=== PATIENT | female | born 1965 | race Caucasian/White ===

== ENCOUNTER 2021-11-29 08:35 | Emergency (ER) | payer SELFPAY ==
--- NOTE | ~2021-11-29 | XR_ITS ---
EXAMINATION: [id number] DATE: 11/29/2021 09:11 INDICATION: Posterior right rib pain after fall down stairs. TECHNIQUE: A frontal inspiratory view of the chest and 3 views of the right ribs were obtained. COMPARISON: None FINDINGS: Posterolateral right 9th and 10th ribs, the former nondisplaced, the latter mildly displaced. Lungs a re clear with no focal airspace opacities, pulmonary edema, pleural effusion or pneumothorax. Cardiom ediastinal silhouette is normal. Mild thoracic dextrocurvature with moderate spondylosis. IMPRESSION: 1. Right 9th and 10th rib fractures. Reviewed, dictated and finalized at location B.
[2021-11-29 08:46] VITALS: BP 118/60; PULSE 102; RESP 20; TEMP 37.6; O2SAT 96
--- NOTE | 2021-11-29 09:14 | ED.FALL ---
HPI - Fall General Chief Complaint: Fall Stated Complaint: Fall Injury/Right Rib Pain Time Seen by Provider: 11/29/21 09:35 Mode of arrival: ambulatory Limitations: no limitations History of Present Illness HPI Narrative: 56-year-old female presents with concern for right posterior rib pain after falling this morning. Reports around 7 AM she was carrying baby down stairs when she slipped and fell down 4 steps. She reports immediate pain to the posterior lateral rib cage. She denies shortness of breath, cough. She denies intervention. She denies open skin, lacerations or abrasions. She denies any other injury MD complaint: fall Related Data Allergies Allergy/AdvReac Type Severity Reaction Status Date / Time No Known Allergies Allergy Verified 11/29/21 09:06 Review of Systems Review of Systems: CONSTITUTIONAL: Denies malaise, chills, sweats, or fever. CARDIOVASCULAR: Denies chest pain, palpitations, or edema. RESPIRATORY: Denies cough or dyspnea. Reports chest wall pain GASTROINTESTINAL: Denies abdominal pain SKIN: Denies lacerations, abrasions MUSCULOSKELETAL: Denies joint pain All systems reviewed & are unremarkable except as noted in HPI and below PMFSH Social History Social History Alcohol intake: never Comments At time of signature, agree with nursing past medical, surgical, social and family history. There is no relevant family history pertinent to the presenting complaint Exam Narrative: GENERAL: Well-appearing, well-nourished, and in no acute distress. HEAD: Normocephalic, atraumatic. EYES: PERRLA, sclera clear ENT: Mucous membranes moist. NECK: Supple. CHEST: No respiratory distress. Clear to auscultation. No bony deformities, no asymmetry. Speaks in full sentences. Tenderness to the posterior lower right ribs HEART: Regular rate and rhythm. SKIN: Warm, dry, no visible rash. No abrasions, lacerations, bruising noted NEURO: Alert and oriented x3. PSYCH: Normal mood and affect Course Course Emergency Course: Patient is aware of diagnosis, understands and agrees to treatment plan. Anticipatory guidance given. Patient agrees to follow-up as directed and is aware of reasons to seek care at the emergency department. Portions of this record may have been created with voice recognition software Level of Care: Express Care Visit Vital Signs Vital signs: Vital Signs Temperature 99.7 F H 11/29/21 08:46 Pulse Rate 102 H 04/04/22 08:46 Respiratory Rate 20 11/29/21 08:46 Blood Pressure 118/60 11/29/21 08:46 Pulse Oximetry 96 11/29/21 08:46 Temperature 99.7 F H 11/29/21 08:46 Pulse Rate 102 H 11/29/21 08:46 Respiratory Rate 20 11/29/21 08:46 Blood Pressure 118/60 11/29/21 08:46 Pulse Oximetry 96 11/29/21 08:46 Reviewed. MDM - Fall MDM Narrative Medical decision making narrative: Patients injury and pain is consistent with musculoskeletal etiology. No signs of neurological or vascular compromise on exam. Compartments and tissues are soft without signs of compartment syndrome. Pain is felt appropriate for further evaluation on an outpatient basis. Imaging Data My impression: Images reviewed, interpreted by radiologist, agree, see report. Radiologist's impression: EXAMINATION: [id number] DATE: 11/29/2021 09:11 INDICATION: Posterior right rib pain after fall down stairs. TECHNIQUE: A frontal inspiratory view of the chest and 3 views of the right ribs were obtained. COMPARISON: None FINDINGS: Posterolateral right 9th and 10th ribs, the former nondisplaced, the latter mildly displaced. Lungs are clear with no focal airspace opacities, pulmonary edema, pleural effusion or pneumothorax. Cardiomediastinal silhouette is normal. Mild thoracic dextrocurvature with moderate spondylosis. IMPRESSION: 1. Right 9th and 10th rib fractures. Critical Care Time Critical Care Time Critical Care Time: No Discharge Plan Discharge Clinical Impression: Fracture, ri
== END 2021-11-29 09:42 | disposition home or self-care (01) ==
PROVIDERS: Emergency Provider Nurse Practitioner; PCP Family Medicine
DX: S22.41XA Multiple fractures of ribs, right side, initial encounter for closed fracture (principal); W10.9XXA Fall (on) (from) unspecified stairs and steps, initial encounter
CPT/HCPCS: 71101; 99203; G0463